=== PATIENT | female | born 1995 | race Caucasian/White ===

== ENCOUNTER 2020-02-28 00:40 | Observation (INO) | payer MEDICAID, SELFPAY ==
[2020-02-28] VITALS (10 sets, daily range): BP systolic 104–118; BP diastolic 60–91; PULSE 88–107; RESP 16–18; TEMP 36.4–36.8; O2SAT 96–97; BMI 33.2
[2020-02-28] MEDS: sodium chloride 0.9% 1,000 ML 999 ML IV (00:45)
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
[2020-02-28 01:38] LABS: Basophils % 0.3 %; Eosinophils # 0.1 10^3/uL (0.0-0.8); Eosinophils % 0.4 %; Hematocrit 32.1 % (37.0-47.0); Hemoglobin 10.1 g/dL (11.5-15.3); Lymphocytes # 1.8 10^3/uL (0.8-4.8); Lymphocytes % 13.3 %; Mean Corpuscular HGB Conc 31.5 g/dL (30.0-36.0); Mean Corpuscular Hemoglobin 26.5 pg (28.0-34.0); Mean Corpuscular Volume 84.3 fL (81-99); Mean Platelet Volume 9.2 fL (7.4-10.4); Monocytes # 1.1 10^3/uL (0.2-0.9); Monocytes % 8.4 %; Neutrophils # 10.52 10^3/uL (1.8-7.7); Neutrophils % 77.1 %; Nucleated Red Blood Cells % 0 %; Platelet Count 366 10^3/cmm (130-400); Red Blood Count 3.81 10^6/uL (4.1-5.3); Red Cell Distribution Width 12.8 % (12.1-15.1); White Blood Count 13.6 10^3/uL (4.0-10.0)
[2020-02-28 01:48] LABS: Alanine Aminotransferase 17 U/L (0-33); Albumin Level 3.5 g/dL (3.5-5.2); Alkaline Phosphatase 92 IU/L (35-105); Anion Gap 15.6 (5-19); Aspartate Amino Transferase 22 U/L (0-32); Blood Urea Nitrogen 6 mg/dL (6-20); Calcium 8.8 mg/dL (8.5-10.5); Carbon Dioxide 19 mmol/L (22-29); Chloride 106 mmol/L (98-107); Globulin 3.3 g/dL (1.3-4.6); Glomerular Filtration Rate 154.3 mL/min (90-130); Glucose 118 mg/dL (65-115); Osmolality Calculated 281 mOsm/kg (285-295); Potassium 3.6 mmol/L (3.5-5.1); Sodium 137 mmol/L (136-145); Total Bilirubin 0.2 mg/dL (0.15-1.2); Total Protein 6.8 g/dL (6.6-8.7)
[2020-02-28 01:50] LABS: Add Urine Culture? Yes; Bacteria Urine 3+; Bilirubin Urine 1+ (NEGATIVE); Blood Urine Neg (Negative); Glucose Urine UA Norm (Normal); Ketones Urine Negative (Negative); Leukocyte Esterase Urine 2+ (Negative); Nitrate Urine Negative (Negative); Protein Urine Neg (Negative); Urine Appearance SL Hazy (CLEAR); Urine Color Yellow (Yellow); Urobilinogen Urine 1 mg/dL (Negative); WBC Urine 25-40 /hpf (0-5); pH Urine 6 (5-7)
[2020-02-28] MEDS: iohexol 300 mg/mL 100 mL Btl IV (02:17)
[2020-02-28 04:32] LABS: Add Urine Microscopic? NO
[2020-02-28 04:37] LABS: Bilirubin Urine Neg (NEGATIVE); Blood Urine Neg (Negative); Glucose Urine UA Norm (Normal); Ketones Urine Negative (Negative); Leukocyte Esterase Urine Negative (Negative); Nitrate Urine Negative (Negative); Protein Urine Neg (Negative); Specific Gravity, Urine 1.005 (1.005-1.030); Urine Appearance Clear (CLEAR); Urine Color Yellow (Yellow); Urobilinogen Urine 4 mg/dL (Negative); pH Urine 5 (5-7)
[2020-02-28 06:16] LABS: Amphetamines Screen Urine Negative (Negative); Barbiturates Screen Urine Negative (Negative); Benzodiazepines Screen Urine Negative (Negative); Cocaine Screen Urine Negative (Negative); Opiate Screen Urine Negative (Negative); PCP Screen Urine Negative (Negative); THC Screen Urine Positive (Negative)
== END 2020-02-28 06:25 | disposition home or self-care (01) ==
LOC: ER 01:21 → OBGYN 03:04
PROVIDERS: Admitting Provider Obstetrics & Gynecology; Emergency Provider Emergency Medicine; Visit Provider Obstetrics & Gynecology
DX: O26.899 Other specified pregnancy related conditions, unspecified trimester (principal); Z3A.00 Weeks of gestation of pregnancy not specified; R10.9 Unspecified abdominal pain; V89.2XXA Person injured in unspecified motor-vehicle accident, traffic, initial encounter
CPT/HCPCS: 12345; 36415; 59025; 70450; 71045; 71260; 72125; 73130; 73562; 74177; 76700; 76815; 80053; 80306; 81001; 81003; 85025; 86900; 87086; 96360; 96361; 99211; 99283; 99285; G0378; J7030; Q9967